=== PATIENT | female | born 1995 | race Caucasian/White ===

== ENCOUNTER 2017-05-16 04:21 | Emergency (ER) | payer MEDICAID, OTHER ==
[~2017-05-16] VITALS: Ht 160 cm; Wt 102.0 kg
[2017-05-16] MEDS ORDERED: KETOROLAC 30 MG/1 ML IM ONE (05:00)
[2017-05-16] MEDS ORDERED: KETOROLAC 30 MG/1 ML ONE (05:21)
[2017-05-16 07:58] VITALS: BP 134/81
== END 2017-05-16 08:00 | disposition home or self-care (01) ==
LOC: ED 05:59
DX: S93.431A Sprain of tibiofibular ligament of right ankle, initial encounter (principal); K02.9 Dental caries, unspecified; J45.909 Unspecified asthma, uncomplicated; X58.XXXA Exposure to other specified factors, initial encounter; Y93.89 Activity, other specified; Y92.009 Unspecified place in unspecified non-institutional (private) residence as the place of occurrence of the external cause; Y99.9 Unspecified external cause status
CPT/HCPCS: 29515; 73610; 96372; 99284; J1885

== ENCOUNTER 2017-05-19 01:06 | Emergency (ER) | payer MEDICAID ==
[~2017-05-19] VITALS: Ht 160 cm; Wt 98.0 kg
[2017-05-19 01:07] VITALS: BP 136/89
[2017-05-19] MEDS ORDERED: KETOROLAC 30 MG/1 ML ONE (01:43)
[2017-05-19] MEDS ORDERED: KETOROLAC 30 MG/1 ML IM ONE (02:00)
== END 2017-05-19 02:29 | disposition home or self-care (01) ==
LOC: ED 01:44
DX: K08.89 Other specified disorders of teeth and supporting structures (principal); M79.671 Pain in right foot
CPT/HCPCS: 96372; 99283; J1885

== ENCOUNTER 2017-12-28 20:56 | Emergency (ER) | payer MEDICAID, OTHER ==
[~2017-12-28] VITALS: Ht 157.5 cm; Wt 104.5 kg
[2017-12-28] MEDS ORDERED: ALBUTEROL SULFATE 2.5 MG/3 ML ONE ×2 (21:39→21:48)
[2017-12-28] MEDS ORDERED: ALBUTEROL SULFATE 2.5 MG/3 ML NPPB ONE (22:00)
[2017-12-28 22:57] VITALS: BP 132/66
[2017-12-28] MEDS ORDERED: ALBUTEROL/IPRATROPIUM 2.5MG/0.5MG, 3 ML HHN SCH (23:00)
== END 2017-12-28 23:46 | disposition home or self-care (01) ==
LOC: ED 23:23
DX: O99.511 Diseases of the respiratory system complicating pregnancy, first trimester (principal); J45.41 Moderate persistent asthma with (acute) exacerbation; Z3A.10 10 weeks gestation of pregnancy; F41.1 Generalized anxiety disorder; Z90.89 Acquired absence of other organs; Z90.49 Acquired absence of other specified parts of digestive tract
CPT/HCPCS: 71045; 93005; 94640; 99284

== ENCOUNTER 2018-01-05 14:23 | Inpatient (IN) | payer OTHER ==
[~2018-01-05] VITALS: Ht 160 cm; Wt 106.9 kg
[2018-01-05] MEDS ORDERED: SODIUM CHLORIDE 0.9% 1,000 ML IV ONE (14:57)
[2018-01-05] MEDS ORDERED: ALBUTEROL/IPRATROPIUM 2.5MG/0.5MG, 3 ML NPPB SCH (15:00)
[2018-01-05] MEDS ORDERED: ALBUTEROL/IPRATROPIUM 2.5MG/0.5MG, 3 ML ONE (15:29)
[2018-01-05] MEDS ORDERED: methylPREDNISolone SOD SUCC 125 MG/2 ML IVP ONE (15:30)
[2018-01-05 15:51] LABS: BASOPHILS % (AUTO) 1 % (0-1); EOSINOPHILS # (AUTO) 0.73 x10^3/uL (0-0.4); EOSINOPHILS % (AUTO) 6 % (1-7); LYMPHOCYTES # (AUTO) 2.65 x10^3/uL (1-3.4); LYMPHOCYTES % (AUTO) 22 % (22-44); MD NO; MEAN CORPUSCULAR HEMOGLOBIN 28.9 pg (27.0-34.8); MEAN CORPUSCULAR HGB CONC 33.7 g/dL (32.4-35.8); MEAN CORPUSCULAR VOLUME 85.8 fL (80-100); MEAN PLATELET VOLUME 8.1 fL (7.4-10.4); MONOCYTES # (AUTO) 0.71 x10^3/uL (0.2-0.8); MONOCYTES % (AUTO) 6 % (2-9); NEUTROPHILS # (AUTO) 8.12 x10^3/uL (1.8-6.8); NEUTROPHILS % (AUTO) 66 % (42-75); PLATELET COUNT 342 x10^3/uL (130-400); RED BLOOD COUNT 4.81 x10^6/uL (3.82-5.3); RED CELL DISTRIBUTION WIDTH 12.9 % (9.6-15.2)
[2018-01-05 16:01] LABS: ALBUMIN 3.6 g/dL (3.4-5.0); ANION GAP 8 mmol/L (5-15); CALCIUM 9.7 mg/dL (8.5-10.1); CHLORIDE 107 mmol/L (98-107); CREATININE 0.61 mg/dL (0.55-1.02)
[2018-01-05] MEDS ORDERED: OMNIPAQUE 350 MG/ML, 100ML BOTTLE ONE (19:33)
[2018-01-05] MEDS ORDERED: methylPREDNISolone SOD SUCC 125 MG/2 ML ONE (20:15)
[2018-01-05] MEDS ORDERED: PREN1TAB60 PO (20:23)
[2018-01-05] MEDS ORDERED: ALBU18HF INH (20:23)
[2018-01-05] MEDS ORDERED: MAGNESIUM SULFATE 1 GM in SODIUM CHLORIDE 0.9% 50 ML IV ONE (20:30)
[2018-01-05] MEDS ORDERED: methylPREDNISolone SOD SUCC 40 MG/ML IV SCH (20:30)
[2018-01-05] MEDS ORDERED: methylPREDNISolone SOD SUCC 125 MG/2 ML IV ONE (20:30)
[2018-01-05] MEDS ORDERED: DOCUSATE 100 MG CAPSULE PO PRN (21:30)
[2018-01-06 03:00] VITALS: BP 127/79
[2018-01-06 07:38] VITALS: BP 129/74
[2018-01-06] MEDS: PRENATAL VITS W CA FE FA HOMEMEDPO SCH (08:01)
[2018-01-06] MEDS: [UNRECOGNIZED DRUG - OTHER] HOMEMEDPO SCH (08:01)
[2018-01-06] MEDS: methylPREDNISolone SOD SUCC 40 MG/ML IVPush SCH ×3 (08:01→20:29)
[2018-01-06] MEDS: ALBUTEROL/IPRATROPIUM 2.5MG/0.5MG, 3 ML NPPB PRN ×3 (09:50→20:44)
[2018-01-06 12:20] VITALS: BP 116/76
[2018-01-06] MEDS ORDERED: KETOROLAC 30 MG/1 ML IVPush ONE (12:30)
[2018-01-06 13:43] VITALS: BP 140/71
[2018-01-06 19:32] VITALS: BP 129/73
[2018-01-06] MEDS: ACETAMINOPHEN 325 MG TABLET PO PRN (22:24)
[2018-01-07 00:43] VITALS: BP 112/68
[2018-01-07] MEDS: methylPREDNISolone SOD SUCC 40 MG/ML IVPush SCH ×4 (01:45→20:19)
[2018-01-07] MEDS: ALBUTEROL/IPRATROPIUM 2.5MG/0.5MG, 3 ML NPPB PRN ×4 (01:51→20:02)
[2018-01-07] MEDS: PRENATAL VITS W CA FE FA HOMEMEDPO SCH (08:28)
[2018-01-07] MEDS: [UNRECOGNIZED DRUG - OTHER] HOMEMEDPO SCH (08:28)
[2018-01-07] MEDS ORDERED: BUTALB/APAP/CAFFEINE 50MG/325MG/40MG PO ONE (09:30)
[2018-01-07 11:45] VITALS: BP 123/75
[2018-01-07] MEDS ORDERED: MAGNESIUM SULFATE PMX 2GM/50ML 50 ML IV ONE (12:00)
[2018-01-07] MEDS ORDERED: FLUTICASONE FUROATE 200MCG/INH INH ONE (13:02)
[2018-01-07] MEDS ORDERED: BUTALB/APAP/CAFFEINE 50MG/325MG/40MG ONE (13:47)
[2018-01-07 14:00] VITALS: BP 114/74
[2018-01-07] MEDS ORDERED: CALCIUM CARBONATE 500 MG TAB.CHEW ONE (16:22)
[2018-01-07 21:01] VITALS: BP 125/74
[2018-01-07 21:33] VITALS: BP 110/69
[2018-01-08] MEDS: methylPREDNISolone SOD SUCC 40 MG/ML IVPush SCH ×3 (01:33→16:47)
[2018-01-08 03:50] VITALS: BP 123/89
[2018-01-08 04:04] VITALS: BP 123/89
[2018-01-08 07:25] VITALS: BP 137/80
[2018-01-08] MEDS: FLUTICASONE FUROATE 200MCG/INH INH SCH (08:41)
[2018-01-08] MEDS: PRENATAL VITS W CA FE FA HOMEMEDPO SCH (08:41)
[2018-01-08] MEDS: [UNRECOGNIZED DRUG - OTHER] HOMEMEDPO SCH (08:41)
[2018-01-08] MEDS: CALCIUM CARBONATE 500 MG TAB.CHEW PO PRN (10:42)
[2018-01-08] MEDS ORDERED: POTASSIUM CHLORIDE 20 MEQ TAB.ER.PRT PO ONE (11:30)
[2018-01-08] MEDS ORDERED: FUROSEMIDE 20 MG/2 ML IV ONE (11:30)
[2018-01-08 14:00] VITALS: BP 141/82
[2018-01-08 19:49] VITALS: BP 126/69
[2018-01-09] MEDS: methylPREDNISolone SOD SUCC 40 MG/ML IVPush SCH ×2 (00:36→08:56)
[2018-01-09 02:05] VITALS: BP 132/79
[2018-01-09 07:25] VITALS: BP 134/85
[2018-01-09] MEDS: FLUTICASONE FUROATE 200MCG/INH INH SCH (08:57)
[2018-01-09] MEDS: [UNRECOGNIZED DRUG - OTHER] HOMEMEDPO SCH (08:59)
[2018-01-09] MEDS: PRENATAL VITS W CA FE FA HOMEMEDPO SCH (08:59)
[2018-01-09] MEDS: ALBUTEROL/IPRATROPIUM 2.5MG/0.5MG, 3 ML NPPB PRN ×2 (09:54→21:30)
[2018-01-09] MEDS: ACETAMINOPHEN 325 MG TABLET PO PRN ×2 (10:28→19:36)
[2018-01-09] MEDS ORDERED: FUROSEMIDE 20 MG/2 ML IV ONE (11:00)
[2018-01-09] MEDS ORDERED: POTASSIUM CHLORIDE 20 MEQ TAB.ER.PRT PO ONE (11:00)
[2018-01-09 13:55] VITALS: BP 149/70
[2018-01-09 21:05] VITALS: BP 140/54
[2018-01-09] MEDS: CALCIUM CARBONATE 500 MG TAB.CHEW PO PRN (22:41)
[2018-01-10 05:41] VITALS: BP 106/63
[2018-01-10 07:00] VITALS: BP 115/71
[2018-01-10] MEDS: ALBUTEROL/IPRATROPIUM 2.5MG/0.5MG, 3 ML NPPB PRN ×3 (08:47→18:45)
[2018-01-10] MEDS: PRENATAL VITS W CA FE FA HOMEMEDPO SCH (09:00)
[2018-01-10] MEDS: [UNRECOGNIZED DRUG - OTHER] HOMEMEDPO SCH (09:00)
[2018-01-10] MEDS: FLUTICASONE FUROATE 200MCG/INH INH SCH (09:32)
[2018-01-10 13:53] VITALS: BP 134/83
[2018-01-10 20:13] VITALS: BP 135/91
[2018-01-10] MEDS: ACETAMINOPHEN 325 MG TABLET PO PRN (20:31)
== END 2018-01-10 22:44 | disposition short-term general hospital (02) | DRG 831 ==
LOC: ED 18:15 → EDIP 20:14 → 4EST 21:29 → 4WST 01-08 20:21
PROVIDERS: ADMIT Internal Medicine; ATTEND Hospitalist
DX: O99.511 Diseases of the respiratory system complicating pregnancy, first trimester (principal); J96.01 Acute respiratory failure with hypoxia; I47.1 Supraventricular tachycardia; J45.52 Severe persistent asthma with status asthmaticus; Z68.41 Body mass index [BMI] 40.0-44.9, adult; E66.01 Morbid (severe) obesity due to excess calories; Z88.0 Allergy status to penicillin; Z88.8 Allergy status to other drugs, medicaments and biological substances; O99.211 Obesity complicating pregnancy, first trimester; Z3A.12 12 weeks gestation of pregnancy; Z82.5 Family history of asthma and other chronic lower respiratory diseases; Z90.49 Acquired absence of other specified parts of digestive tract; O99.411 Diseases of the circulatory system complicating pregnancy, first trimester; Z80.8 Family history of malignant neoplasm of other organs or systems; Z80.6 Family history of leukemia
CPT/HCPCS: 36415; 99285; J7620; 71045; 71275; 76857; 80048; 82040; 84702; 85025; 93005; 94640; 96360; G0378; J1885; J3475; Q9967; J1940; J2920; J7030; J7512

== ENCOUNTER 2018-05-15 23:54 | Emergency (ER) | payer OTHER ==
[~2018-05-15] VITALS: Ht 160 cm; Wt 109.0 kg
[~2018-05-15 23:54] MED LIST: ALBU18HF INH; PREN1TAB60 PO
[2018-05-16] MEDS ORDERED: DEXAMETHASONE 4 MG/ML, 5ML ONE (00:09)
[2018-05-16 00:15] LABS: BASOPHILS # (AUTO) 0.11 x10^3/uL (0-0.1); BASOPHILS % (AUTO) 1 % (0-1); EOSINOPHILS # (AUTO) 0.31 x10^3/uL (0-0.4); EOSINOPHILS % (AUTO) 3 % (1-7); LYMPHOCYTES # (AUTO) 2.91 x10^3/uL (1-3.4); LYMPHOCYTES % (AUTO) 25 % (22-44); MD NO; MEAN CORPUSCULAR HEMOGLOBIN 29.3 pg (27.0-34.8); MEAN CORPUSCULAR HGB CONC 34.2 g/dL (32.4-35.8); MEAN CORPUSCULAR VOLUME 85.6 fL (80-100); MEAN PLATELET VOLUME 7.9 fL (7.4-10.4); MONOCYTES # (AUTO) 0.63 x10^3/uL (0.2-0.8); MONOCYTES % (AUTO) 5 % (2-9); NEUTROPHILS # (AUTO) 7.73 x10^3/uL (1.8-6.8); NEUTROPHILS % (AUTO) 66 % (42-75); PLATELET COUNT 373 x10^3/uL (130-400); RED BLOOD COUNT 4.82 x10^6/uL (3.82-5.3)
[2018-05-16 00:27] LABS: ALBUMIN 3.8 g/dL (3.4-5.0); ANION GAP 6 mmol/L (5-15); CALCIUM 8.8 mg/dL (8.5-10.1); CHLORIDE 109 mmol/L (98-107); CREATININE 0.75 mg/dL (0.55-1.02)
[2018-05-16] MEDS ORDERED: SODIUM CHLORIDE FLUSH 10ML SYR IVF ONE (00:30)
[2018-05-16] MEDS ORDERED: DEXAMETHASONE 4 MG/ML, 1ML IVPush ONE (00:30)
--- NOTE | 2018-05-16 00:54 | NUR ---
FIRST CONTACT WITH PT. PT C/O SORE THROAT X 5 DAYS. PT DENIES ANY OTHER S/S. PT'S AOX4. RESPS EVEN AND UNLABORED. BP/SPO2 MONITORS IN PLACE. CALL LIGHT WITHIN REACH. EDMD AT BEDSIDE TO ASSESS AT THIS TIME.
[2018-05-16] MEDS ORDERED: OMNIPAQUE 350 MG/ML, 100ML BOTTLE ONE (01:09)
[2018-05-16] MEDS ORDERED: CLINDAMYCIN PMX 600MG/50ML 50 ML IV ONE (01:30)
[2018-05-16] MEDS ORDERED: CLINDAMYCIN PMX 600MG/50ML 50 ML ONE (01:36)
[2018-05-16 01:48] VITALS: BP 130/59
--- NOTE | 2018-05-16 01:51 | NUR ---
PT MEDICATED PER EMAR. PT TOLERATED WE.. PT'S AOX4. RESPS EVEN AND UNLABORED.
== END 2018-05-16 02:34 | disposition home or self-care (01) ==
LOC: ED 05-16 01:11
DX: J02.9 Acute pharyngitis, unspecified (principal); J04.0 Acute laryngitis; J45.909 Unspecified asthma, uncomplicated
CPT/HCPCS: 36415; 70491; 80048; 82040; 85025; 96365; 96375; 99284; J1100; Q9967

== ENCOUNTER 2018-06-24 03:14 | Emergency (ER) | payer OTHER ==
[~2018-06-24] VITALS: Ht 160 cm; Wt 109.5 kg
--- NOTE | 2018-06-24 03:35 | NUR ---
first contact with pt. pt c/o left dental pain x 5 days and headache. pt's aox4. resps even and unlabored. pa at bedside to explain poc at this time.
[2018-06-24] MEDS ORDERED: KETOROLAC 30 MG/1 ML ONE (03:37)
[2018-06-24 03:42] VITALS: BP 142/79
--- NOTE | 2018-06-24 03:46 | NUR ---
pt medicated per emar. pt tolerated well.
[2018-06-24] MEDS ORDERED: KETOROLAC 30 MG/1 ML IM ONE (04:00)
--- NOTE | 2018-06-24 04:00 | NUR ---
PT GIVEN DC INSTRUCTIONS AND SCRIPT. PT EDUCATED REGARDING DC MEDICATION. PT AMB TO DC WITH STEADY GAIT. NO ACUTE DISTRESS AT DC.
== END 2018-06-24 04:01 | disposition home or self-care (01) ==
LOC: ED 03:55
DX: K08.89 Other specified disorders of teeth and supporting structures (principal); J45.909 Unspecified asthma, uncomplicated; Z88.0 Allergy status to penicillin
CPT/HCPCS: 96372; 99283; J1885

== ENCOUNTER 2018-07-31 06:03 | Emergency (ER) | payer SELFPAY ==
[~2018-07-31] VITALS: Ht 160 cm; Wt 110.1 kg
--- NOTE | 2018-07-31 06:32 | NUR ---
FIRST CONTACT WITH PT. PT STATES THAT SHE IS HAVING DENTAL PAIN THAT IS CAUSING MOLINA'S. PT STATES THAT SHE WAS SEEN HERE LAST MONTH FOR SIMILAR, BUT HASN'T BEEN IN TO GET HER TOOTH FIXED YET. PT'S AOX4. RESPS EVEN AND UNLABORED. BP/SPO2 MONITORS IN PLACE. CALL LIGHT WITHIN REACH.
--- NOTE | 2018-07-31 06:55 | NUR ---
REPORT GIVEN TO ERIC KNUTSON
[2018-07-31 07:20] VITALS: BP 138/75
== END 2018-07-31 07:36 | disposition home or self-care (01) ==
LOC: ED 07:34
DX: K02.9 Dental caries, unspecified (principal); J45.909 Unspecified asthma, uncomplicated
CPT/HCPCS: 99283

== ENCOUNTER 2018-09-01 23:33 | Emergency (ER) | payer SELFPAY ==
[~2018-09-01] VITALS: Ht 160 cm; Wt 111.2 kg
--- NOTE | 2018-09-01 23:52 | NUR ---
FIRST CONTACT WITH PT. PT REPORTS DENTAL PAIN AND NOW WITH MOLINA. PT'S AOX4. RESPS EVEN AND UNLABORED. PA AT BEDSIDE TO EVALUATE AT THIS TIME.
[2018-09-02] MEDS ORDERED: PROCHLORPERAZINE 5 MG/ML, 2ML ONE
[2018-09-02] MEDS ORDERED: PROCHLORPERAZINE 5 MG/ML, 2ML IM ONE
[2018-09-02] MEDS ORDERED: DIPHENHYDRAMINE 25 MG CAPSULE PO ONE
[2018-09-02] MEDS ORDERED: KETOROLAC 30 MG/1 ML IM ONE
[2018-09-02] MEDS ORDERED: DIPHENHYDRAMINE 25 MG CAPSULE ONE (00:01)
[2018-09-02] MEDS ORDERED: KETOROLAC 30 MG/1 ML ONE (00:01)
--- NOTE | 2018-09-02 00:08 | NUR ---
PT MEDICATED PER EMAR. PT TOLERATED WELL.
[2018-09-02 00:28] LABS: BASOPHILS # (AUTO) 0.07 x10^3/uL (0-0.1); BASOPHILS % (AUTO) 1 % (0-1); EOSINOPHILS # (AUTO) 0.37 x10^3/uL (0-0.4); EOSINOPHILS % (AUTO) 3 % (1-7); LYMPHOCYTES # (AUTO) 3.32 x10^3/uL (1-3.4); LYMPHOCYTES % (AUTO) 30 % (22-44); MD NO; MEAN CORPUSCULAR HEMOGLOBIN 29.2 pg (27.0-34.8); MEAN CORPUSCULAR HGB CONC 33.3 g/dL (32.4-35.8); MEAN CORPUSCULAR VOLUME 87.5 fL (80-100); MEAN PLATELET VOLUME 7.9 fL (7.4-10.4); MONOCYTES # (AUTO) 0.76 x10^3/uL (0.2-0.8); MONOCYTES % (AUTO) 7 % (2-9); NEUTROPHILS # (AUTO) 6.71 x10^3/uL (1.8-6.8); NEUTROPHILS % (AUTO) 60 % (42-75); PLATELET COUNT 377 x10^3/uL (130-400); RED BLOOD COUNT 4.96 x10^6/uL (3.82-5.3); RED CELL DISTRIBUTION WIDTH 13.5 % (9.6-15.2)
[2018-09-02 00:51] VITALS: BP 121/74
== END 2018-09-02 01:07 | disposition home or self-care (01) ==
LOC: ED 09-02 00:07
DX: K08.89 Other specified disorders of teeth and supporting structures (principal); R21 Rash and other nonspecific skin eruption; Z72.9 Problem related to lifestyle, unspecified; J45.909 Unspecified asthma, uncomplicated; F41.1 Generalized anxiety disorder; Z88.0 Allergy status to penicillin
CPT/HCPCS: 36415; 85025; 96372; 99283; J0780; J1885; Q0163

== ENCOUNTER 2018-09-04 13:08 | Emergency (ER) | payer MEDICAID ==
--- NOTE | 2018-09-04 13:36 | NUR ---
CALLED FOR PT. PT NOT IN LOBBY.
--- NOTE | 2018-09-04 13:50 | NUR ---
CALLED FOR PT. PT NOT IN LOBBY AT THIS TIME.
--- NOTE | 2018-09-04 13:56 | NUR ---
NO ANSWER WHEN PT CALLED
== END 2018-09-04 13:58 | disposition left against medical advice (07) ==
LOC: ED 13:50
DX: R42 Dizziness and giddiness (principal); Z53.21 Procedure and treatment not carried out due to patient leaving prior to being seen by health care provider

== ENCOUNTER 2018-10-02 00:07 | Inpatient (IN) | payer BC, MEDICAID ==
[~2018-10-02] VITALS: Ht 160 cm; Wt 111.8 kg
[2018-10-02] MEDS: ALBUTEROL/IPRATROPIUM 2.5MG/0.5MG, 3 ML NPPB SCH ×2 (00:25→01:27)
--- NOTE | 2018-10-02 00:27 | NUR ---
PT PLACED ON MONITOR. PT GETTING RT TXT NOW. MEDICATED PER EMAR.
--- NOTE | 2018-10-02 01:27 | NUR ---
pt getting txt currently. pt stable, cristel rt at bs. vss. no needs currently.
--- NOTE | 2018-10-02 01:46 | NUR ---
will monitor, cristel dockery.
[2018-10-02] MEDS ORDERED: ALBUTEROL/IPRATROPIUM 2.5MG/0.5MG, 3 ML NPPB ONE (02:30)
--- NOTE | 2018-10-02 02:32 | NUR ---
report to raymundo
[2018-10-02] MEDS ORDERED: ALBUTEROL 0.5%, 20ML ONE (02:47)
[2018-10-02] MEDS ORDERED: IPRATROPIUM 0.5 MG/2.5 ML INHA NPPB STA (02:49)
[2018-10-02] MEDS ORDERED: ALBUTEROL 0.5%, 20ML NPPBCONT PRN (03:00)
[2018-10-02] MEDS ORDERED: ONDANSETRON 2MG/ML, 2ML ONE (03:28)
[2018-10-02] MEDS ORDERED: MAGNESIUM SULFATE PMX 2GM/50ML 50 ML ONE (03:28)
[2018-10-02] MEDS ORDERED: CHOL100011 PO (03:29)
[2018-10-02] MEDS ORDERED: MONT10TA6 PO (03:29)
[2018-10-02] MEDS ORDERED: METO25TA35 PO (03:29)
[2018-10-02] MEDS ORDERED: MULT-758 PO (03:29)
[2018-10-02] MEDS ORDERED: CYAN50TA PO (03:29)
--- NOTE | 2018-10-02 03:29 | NUR ---
poc to admit, pt getting neb #3 now and tech starting iv. xray to bs.
[2018-10-02] MEDS ORDERED: ONDANSETRON 2MG/ML, 2ML IVPush ONE (03:30)
[2018-10-02] MEDS ORDERED: LORazepam 2 MG/ML, 1ML IVPush ONE (03:30)
[2018-10-02] MEDS ORDERED: MAGNESIUM SULFATE PMX 2GM/50ML 50 ML IVPB ONE (03:30)
[2018-10-02] MEDS ORDERED: SODIUM CHLORIDE FLUSH 10ML SYR IVF ONE (03:30)
[2018-10-02 03:45] LABS: BASOPHILS # (AUTO) 0.03 x10^3/uL (0-0.1); BASOPHILS % (AUTO) 0 % (0-1); EOSINOPHILS # (AUTO) 0.04 x10^3/uL (0-0.4); EOSINOPHILS % (AUTO) 0 % (1-7); LYMPHOCYTES # (AUTO) 1.37 x10^3/uL (1-3.4); LYMPHOCYTES % (AUTO) 13 % (22-44); MD NO; MEAN CORPUSCULAR HGB CONC 33.5 g/dL (32.4-35.8); MEAN CORPUSCULAR VOLUME 86.7 fL (80-100); MEAN PLATELET VOLUME 8.3 fL (7.4-10.4); MONOCYTES # (AUTO) 0.22 x10^3/uL (0.2-0.8); MONOCYTES % (AUTO) 2 % (2-9); NEUTROPHILS # (AUTO) 8.76 x10^3/uL (1.8-6.8); NEUTROPHILS % (AUTO) 84 % (42-75); PLATELET COUNT 327 x10^3/uL (130-400); RED BLOOD COUNT 4.85 x10^6/uL (3.82-5.3); RED CELL DISTRIBUTION WIDTH 13.2 % (9.6-15.2)
[2018-10-02 03:53] LABS: ALBUMIN 3.7 g/dL (3.4-5.0); ANION GAP 11 mmol/L (5-15); CALCIUM 9.3 mg/dL (8.5-10.1); CHLORIDE 110 mmol/L (98-107); CREATININE 0.97 mg/dL (0.55-1.02)
[2018-10-02] MEDS ORDERED: AZITHROMYCIN 500 MG in SODIUM CHLORIDE 0.9% 250 ML IV ONE (04:00)
[2018-10-02] MEDS ORDERED: LORazepam 2 MG/ML, 1ML IVPush PRN (04:30)
[2018-10-02] MEDS ORDERED: ALBUTEROL SULFATE 2.5 MG/3 ML NPPB PRN ×2 (04:30→06:00)
[2018-10-02] MEDS ORDERED: methylPREDNISolone SOD SUCC 40 MG/ML IV SCH (04:30)
[2018-10-02] MEDS ORDERED: ALBUTEROL/IPRATROPIUM 2.5MG/0.5MG, 3 ML HHN SCH (04:30)
--- NOTE | 2018-10-02 04:46 | NUR ---
PT WITH MAG DRIP RUNNING ORDERED AND AWAITING TELE BED ADMIT MD TO BEDSIDE.
[2018-10-02] MEDS ORDERED: methylPREDNISolone SOD SUCC 40 MG/ML ONE (04:53)
--- NOTE | 2018-10-02 05:30 | NUR ---
PT WITH ABX RUNNING ORDERED AND IS ON A TELE HILD WITH BED AFTER SHIFT CHANGE. PT PLACED ON OC VIA NC AT 2.5 L AND IS SATING AT 97%
--- NOTE | 2018-10-02 06:50 | NUR ---
REPORT GIVEN TO MARTINE ACEVEDO
[2018-10-02] MEDS: ALBUTEROL SULFATE 2.5 MG/3 ML NPPB SCH ×4 (07:00→19:40)
--- NOTE | 2018-10-02 07:28 | NUR ---
ASSUMED CARE. PT RESTING WITH EYES CLOSED. CONTINUE TO MONITOR WHILE AWAITING ROOM ASSIGNMENT
[2018-10-02] MEDS ORDERED: POTASSIUM CHLORIDE 20 MEQ TAB.ER.PRT PO ONE (07:30)
[2018-10-02] MEDS ORDERED: POTASSIUM CHLORIDE 20 MEQ TAB.ER.PRT ONE (08:16)
--- NOTE | 2018-10-02 08:40 | NUR ---
PT HR UP TO 140 FROM CHANGING POSITION IN BED TO SITTING UP TO TAKE POTASSIUM. PT STATES SHE DID NOT GET HER METOPROLOL LAST NIGHT. DR OPAL MCKEON CONTACTED WITH ORDER RECEIVED FOR TOPRLOL XL TO START NOW.
--- NOTE | 2018-10-02 08:46 | NUR ---
REPORT TO CARIDAD ACEVEDO
--- NOTE | 2018-10-02 08:46 | NUR ---
CARIDAD MADE AWARE OF PT TACHICARDIC AND THAT ORDER RECEIVED FOR TOPROL TO START NOW. TOPROL NOT IN ER OMNICEL BUT CARIDAD STATES AVAILABLE ON FLOOR. CARIDAD TO GIVE MED WHEN PT ARRIVES ON FLOOR
--- NOTE | 2018-10-02 08:49 | NUR ---
AMBULATED TO BATHROOM AT SLOW PACE BECAUSE SHE FEELS TACHICARDIA.
[2018-10-02] MEDS ORDERED: BUDESONIDE 0.5 MG/2 ML INHA NPPB SCH (09:00)
[2018-10-02 09:23] VITALS: BP 120/72
[2018-10-02] MEDS ORDERED: FLUT1DIS3 INH (09:36)
[2018-10-02] MEDS: METOPROLOL SUCCINATE 25 MG TAB.ER.24H PO SCH (10:20)
[2018-10-02] MEDS: HEPARIN 5,000 UNITS/ML, 1ML SQ SCH ×3 (10:20→23:47)
[2018-10-02] MEDS: SODIUM CHLORIDE 0.9% 1,000 ML IV SCH (10:20)
[2018-10-02 13:50] VITALS: BP 115/68
[2018-10-02] MEDS ORDERED: ACETAMINOPHEN 325 MG TABLET ONE (16:17)
[2018-10-02] MEDS: ACETAMINOPHEN 325 MG TABLET PO PRN ×2 (16:21→22:17)
[2018-10-02 20:28] VITALS: BP 112/64
[2018-10-02] MEDS ORDERED: MONTELUKAST 10 MG TABLET PO SCH (21:00)
[2018-10-02] MEDS ORDERED: METOPROLOL TARTRATE 25 MG TABLET PO SCH (21:00)
[2018-10-02] MEDS ORDERED: CHOLECALCIFEROL 400 UNITS TABLET PO SCH (22:15)
[2018-10-02] MEDS ORDERED: MULTIVITAMIN 1 TABLET PO SCH (22:15)
[2018-10-02] MEDS ORDERED: CYANOCOBALOMIN 100MCG TABLET PO SCH (22:15)
[2018-10-02] MEDS ORDERED: HYDROXYZINE PAMOATE 50MG CAP PO ONE (23:30)
[2018-10-03] MEDS ORDERED: MAGNESIUM SULFATE PMX 2GM/50ML 50 ML IV ONE (00:30)
[2018-10-03 03:59] VITALS: BP 104/65
[2018-10-03 05:58] LABS: MEAN CORPUSCULAR HEMOGLOBIN 28.3 pg (27.0-34.8); MEAN CORPUSCULAR HGB CONC 32.6 g/dL (32.4-35.8); MEAN CORPUSCULAR VOLUME 86.9 fL (80-100); MEAN PLATELET VOLUME 8.5 fL (7.4-10.4); PLATELET COUNT 319 x10^3/uL (130-400); RED BLOOD COUNT 4.36 x10^6/uL (3.82-5.3); RED CELL DISTRIBUTION WIDTH 13.7 % (9.6-15.2)
[2018-10-03 06:19] LABS: ANION GAP 8 mmol/L (5-15); CALCIUM 8.5 mg/dL (8.5-10.1); CHLORIDE 112 mmol/L (98-107)
[2018-10-03 06:32] LABS: CREATININE 0.56 mg/dL (0.55-1.02); THYROID STIMULATING HORMONE 0.737 mIU/L (0.358-3.740)
[2018-10-03] MEDS: SODIUM CHLORIDE 0.9% 1,000 ML IV SCH (06:42)
[2018-10-03 06:48] LABS: MD YES
[2018-10-03 06:52] LABS: <PLATELET ESTIMATE> ADEQUATE; <PLT MORPHOLOGY> NORMAL PLT MORPH; <RBC MORPHOLOGY> NORMAL; BAND#(MANUAL) 0.91 x10^3/uL; BANDS%(MANUAL) 4 % (0-7); LYMPH#(MANUAL) 1.82 x10^3/uL (1-3.4); LYMPHS% (MANUAL) 8 % (22-44); MONOS#(MANUAL) 1.14 x10^3/uL (0.3-2.7); MONOS% (MANUAL) 5 % (2-9); SEG#(MANUAL) 18.92 x10^3/uL (1.8-6.8); SEGS% (MANUAL) 83 % (42-75)
[2018-10-03 08:09] VITALS: BP 96/58
[2018-10-03] MEDS: HEPARIN 5,000 UNITS/ML, 1ML SQ SCH (08:19)
[2018-10-03] MEDS: METOPROLOL SUCCINATE 25 MG TAB.ER.24H PO SCH (08:22)
[2018-10-03] MEDS: ALBUTEROL SULFATE 2.5 MG/3 ML NPPB SCH ×2 (08:30→10:30)
[2018-10-03] MEDS ORDERED: METO25TA91 PO (12:25)
[2018-10-03 12:35] VITALS: BP 133/70
== END 2018-10-03 15:49 | disposition home or self-care (01) | DRG 202 ==
LOC: ED 00:16 → EDIP 04:26 → 5SO 09:18 → DCLOUNGE 10-03 15:33
PROVIDERS: ADMIT Internal Medicine; ATTEND Internal Medicine
DX: J45.52 Severe persistent asthma with status asthmaticus (principal); I47.1 Supraventricular tachycardia; Z68.42 Body mass index [BMI] 45.0-49.9, adult; F41.1 Generalized anxiety disorder; E87.6 Hypokalemia; R63.4 Abnormal weight loss; G47.30 Sleep apnea, unspecified; E66.01 Morbid (severe) obesity due to excess calories; Z79.899 Other long term (current) drug therapy; Z82.5 Family history of asthma and other chronic lower respiratory diseases; Z88.1 Allergy status to other antibiotic agents; Z88.0 Allergy status to penicillin; Z88.8 Allergy status to other drugs, medicaments and biological substances
CPT/HCPCS: 36415; 36600; J7613; J7620; J7644; 71045; 80048; 81025; 82040; 82803; 83735; 84132; 84443; 84703; 85025; 94640; 94644; G0378; J0456; J2405; J2920; J3475; J7030; J7050; J7512

== ENCOUNTER 2020-05-29 00:12 | Emergency (ER) | payer OTHER, BC ==
[~2020-05-29] VITALS: Ht 160 cm; Wt 94.0 kg
[~2020-05-29 00:12] MED LIST changes: +CHOL100011 PO; +CYAN50TA PO; +FLUT1DIS3 INH; +GUAI200T37 PO; +METO25TA35 PO; +METO25TA91 PO; +MONT10TA6 PO; +MULT-758 PO; +ONDA4TAB13 SL; +PRED10TA PO
[2020-05-29 00:36] LABS: BASOPHILS % (AUTO) 1 % (0-1); EOSINOPHILS % (AUTO) 2 % (1-7); LYMPHOCYTES % (AUTO) 29 % (22-44); MEAN CORPUSCULAR HEMOGLOBIN 27.6 pg (27.0-34.8); MEAN CORPUSCULAR HGB CONC 33.2 g/dL (32.4-35.8); MEAN PLATELET VOLUME 7.6 fL (7.4-10.4); MONOCYTES % (AUTO) 4 % (2-9); NEUTROPHILS % (AUTO) 65 % (42-75); PLATELET COUNT 417 x10^3/uL (130-400); RED BLOOD COUNT 5.01 x10^6/uL (3.82-5.3)
[2020-05-29 00:40] LABS: MD NO
[2020-05-29 00:46] LABS: ALBUMIN 3.3 g/dL (3.4-5.0); ANION GAP 7 mmol/L (5-15); CALCIUM 8.8 mg/dL (8.5-10.1); CHLORIDE 107 mmol/L (98-107); CREATININE 0.81 mg/dL (0.55-1.02)
[2020-05-29 01:48] VITALS: BP 131/53
[2020-05-29] MEDS ORDERED: KETOROLAC 30 MG/1 ML ONE (01:55)
[2020-05-29] MEDS ORDERED: KETOROLAC 30 MG/1 ML IM ONE (02:00)
== END 2020-05-29 02:42 | disposition home or self-care (01) ==
LOC: ED 00:42
DX: M25.551 Pain in right hip (principal); R55 Syncope and collapse; R42 Dizziness and giddiness; R51.9 Headache, unspecified; R00.0 Tachycardia, unspecified; J45.909 Unspecified asthma, uncomplicated; Z90.89 Acquired absence of other organs
CPT/HCPCS: 36415; 73502; 80048; 82040; 84703; 85025; 93005; 96372; 99285; J1885

== ENCOUNTER 2020-11-03 17:00 | Emergency (ER) | payer BC, OTHER ==
[~2020-11-03] VITALS: Ht 160 cm; Wt 108.0 kg
[2020-11-03 18:41] LABS: BASOPHILS % (AUTO) 0 % (0-1); EOSINOPHILS % (AUTO) 2 % (1-7); LYMPHOCYTES % (AUTO) 22 % (22-44); MEAN CORPUSCULAR HEMOGLOBIN 27.6 pg (27.0-34.8); MEAN CORPUSCULAR HGB CONC 34.4 g/dL (32.4-35.8); MEAN PLATELET VOLUME 7.7 fL (7.4-10.4); MONOCYTES % (AUTO) 7 % (2-9); NEUTROPHILS % (AUTO) 69 % (42-75); PLATELET COUNT 318 x10^3/uL (130-400); RED BLOOD COUNT 4.95 x10^6/uL (3.82-5.3)
[2020-11-03 18:51] LABS: ALANINE AMINOTRANSFERASE 27 U/L (12-78); ALBUMIN 3.4 g/dL (3.4-5.0); ANION GAP 8 mmol/L (5-15); CALCIUM 9.3 mg/dL (8.5-10.1); CHLORIDE 107 mmol/L (98-107); CREATININE 0.63 mg/dL (0.55-1.02)
[2020-11-03 18:53] LABS: ALKALINE PHOSPHATASE 58 U/L (45-117); BILIRUBIN,TOTAL 0.4 mg/dL (0.2-1.0); TOTAL PROTEIN 7.4 g/dL (6.4-8.2)
[2020-11-03] MEDS ORDERED: AZITHROMYCIN 500 MG TABLET PO/NG ONE (19:30)
[2020-11-03] MEDS ORDERED: AZITHROMYCIN 250 MG TABLET ONE (19:39)
[2020-11-03] MEDS ORDERED: LORazepam 2 MG/ML, 1ML ONE (19:49)
[2020-11-03] MEDS ORDERED: ALBUTEROL SULFATE 2.5 MG/3 ML ONE (19:49)
[2020-11-03] MEDS ORDERED: ALBUTEROL SULFATE 2.5 MG/3 ML NPPB ONE (20:00)
[2020-11-03] MEDS ORDERED: LORazepam 2 MG/ML, 1ML IVPush ONE (20:00)
[2020-11-03] MEDS ORDERED: FILTER 0.22 MICRON IV ONE (20:00)
[2020-11-03] MEDS ORDERED: SODIUM CHLORIDE FLUSH 10ML SYR IVF ONE (20:00)
[2020-11-03] MEDS ORDERED: CASIRIVIMAB 600 MG, IMDEVIMAB (REGN10987) 600 MG in SODIUM CHLORIDE 0.9% 250 ML IVPB ONE (20:00)
--- NOTE | 2020-11-03 21:46 | NUR ---
Pt stable after IV infusion. No rash or abnormalities present. VSS. WCTM
[2020-11-03 22:01] VITALS: BP 125/61
[2020-11-03] MEDS ORDERED: ONDANSETRON 2MG/ML, 2ML ONE (22:29)
[2020-11-03] MEDS ORDERED: ONDANSETRON 2MG/ML, 2ML IVPush ONE (22:30)
--- NOTE | 2020-11-03 22:33 | NUR ---
Pt now has c/o nausea, light headedness, and muscle aches stating "it feels like my muscles are on fire". Pt made aware that provider will be notified. MONIKA
--- NOTE | 2020-11-03 22:36 | NUR ---
MD Barbour at bedside to discuss POC
[2020-11-03] MEDS ORDERED: ACETAMINOPHEN 325 MG TABLET ONE (22:50)
[2020-11-03] MEDS ORDERED: ACETAMINOPHEN 325 MG TABLET PO ONE (23:00)
[2020-11-03] MEDS ORDERED: ACETAMINOPHEN 500 MG TABLET PO ONE (23:00)
== END 2020-11-03 23:05 | disposition home or self-care (01) ==
LOC: ED 20:53
DX: U07.1 COVID-19 (principal); J12.82 Pneumonia due to coronavirus disease 2019; R06.02 Shortness of breath; J45.909 Unspecified asthma, uncomplicated
CPT/HCPCS: 36415; 71045; 80053; 85025; 93005; 94640; 96374; 96375; 99285; J2060; J2405; J7512; J7613; M0243